=== PATIENT | female | born 1940 | race Caucasian/White ===

== ENCOUNTER 2018-05-04 14:57 | Emergency (ER) | payer OTHER ==
[~2018-05-04] VITALS: Ht 165.1 cm; Wt 70.0 kg
[2018-05-04] MEDS ORDERED: CEFEPIME 2GM/50 ML (PMX) 50 ML IVPB STA (15:05)
[2018-05-04] MEDS ORDERED: SODIUM CHLORIDE 0.9% 1L BAG IV* STA (15:05)
[2018-05-04 15:07] VITALS: Ht 165.1 cm; Wt 70.0 kg
[2018-05-04] MEDS ORDERED: VANCOMYCIN 1 GM (PMX) 250 ML IVPB ONE (15:30)
[2018-05-04] MEDS ORDERED: ACETAMINOPHEN 650 MG SUPP PR ONE ×2 (15:53→16:00)
[2018-05-04] MEDS ORDERED: SOD CHLORIDE 0.9% 100 ML ONE (16:51)
[2018-05-04] MEDS ORDERED: IOHEXOL 100 ML ONE (16:51)
[2018-05-04] MEDS ORDERED: LORAZEPAM 2 MG INJ IV ONE (17:00)
[2018-05-04] MEDS ORDERED: SOD CHLORIDE 0.9% 0 ML IV ONE (17:46)
[2018-05-04] MEDS ORDERED: HALOPERIDOL 5 MG INJ IV ONE (20:00)
--- NOTE | 2018-05-04 20:09 | ERD ---
ER Documentation Chief Complaint Chief Complaint BIB RA FOR EVAL OF ALOC. PT A&OX1. FEBRILE HPI This 77-year-old female, who presents for altered mental state in the setting of fever. The patient was brought in by ambulance, her and son were at the bedside, the majority of her history was obtained from them. According to the the patient had vague neuro symptoms, with questionable facial droop last night, which resolved, and questionable slurred speech, which has also resolved now. Her son feels that she is incoherent, however she does seem to be having signs of improvement, initially she was very slow to respond when he saw her last. She is a former ceramics teacher, so she has very high functioning at baseline. ROS All systems reviewed and are negative except as per history of present illness. Medications Home Meds No Active Prescriptions or Reported Meds Allergies Allergies: Coded Allergies: No Known Allergy (Unverified , 05/04/18) PMhx/Soc Hx Alcohol Use: No Hx Substance Use: No Hx Tobacco Use: No Smoking Status: Never smoker Physical Exam Vitals Vital Signs Date Temp Pulse Resp B/P (MAP) Pulse Ox O2 O2 Flow FiO2 Time Delivery Rate 05/04/18 100.8 103 22 134/47 94 Room Air 18:43 (76) 05/04/18 100.4 102 18 141/47 97 Room Air 17:39 (78) 05/04/18 96 20 126/47 96 Room Air 16:52 (73) 05/04/18 103 18 127/47 95 Room Air 16:47 (73) 05/04/18 Nasal 3 16:35 Cannula 05/04/18 102.3 16:16 05/04/18 102.3 105 20 150/103 99 15:07 (119) Physical Exam Const: Patient is awake, somewhat somnolent, but is able to follow commands Head: Atraumatic Eyes: Normal Conjunctiva ENT: Normal External Ears, Nose and Mouth. Neck: Full range of motion. No meningismus. Resp: Clear to auscultation bilaterally Cardio: Regular rate and rhythm, no murmurs Abd: Soft, non tender, non distended. Normal bowel sounds Skin: No petechiae or rashes Back: No midline or flank tenderness Ext: No cyanosis, or edema Neur: Neuro: M/S: Alert and oriented Face: EOMI, face and pharynx with normal sensation and function Motor: Normal strength throughout Sensation: Normal sensation throughout Speech: Normal Cerebel: Normal coordination Normal gait Normal finger to nose DTR: 2+ and symmetric upper/lower extremities Psych: Normal Mood and Affect Result Diagram: 05/04/18 1518 05/04/18 1518 Results 24 hrs Laboratory Tests Test 05/04/18 15:18 05/04/18 15:40 White Blood Count 15.0 10^3/ul Red Blood Count 3.91 10^6/ul Hemoglobin 6.8 g/dl Hematocrit 25.3 % Mean Corpuscular Volume 64.7 fl Mean Corpuscular Hemoglobin 17.4 pg Mean Corpuscular Hemoglobin Concent 26.9 g/dl Red Cell Distribution Width 16.8 % Platelet Count 345 10^3/UL Mean Platelet Volume 10.4 fl Immature Granulocytes % 0.800 % Neutrophils % % Segmented Neutrophils % (Manual) 77 % Band Neutrophils % (Manual) 18 % Lymphocytes % % Lymphocytes % (Manual) 2 % Monocytes % % Eosinophils % % Eosinophils % (Manual) 2 % Basophils % % Basophils % (Manual) 1 % Nucleated Red Blood Cells % 0.0 /100WBC Immature Granulocytes # 0.120 10^3/ul Neutrophils # 10^3/ul Neutrophils # (Manual) 12.0 10^3/ul Band Neutrophils # 2.7 10^3/ul Lymphocytes (Manual) 0.3 10^3/ul Lymphocytes # 10^3/ul Monocytes # 10^3/ul Eosinophils # 10^3/ul Basophils # 10^3/ul Basophils # (Manual) 0.1 10^3/ul Nucleated Red Blood Cells # 10^3/ul Pathologist Review (Hematology) YES Platelet Estimate NORMAL Polychromasia 1+ Poikilocytosis 2+ Anisocytosis 2+ Microcytosis 2+ Prothrombin Time 15.0 Sec Prothrombin Time Ratio 1.2 INR International Normalized Ratio 1.17 Activated Partial Thromboplast Time 40.7 Sec Sodium Level 133 mmol/L Potassium Level 3.5 mmol/L Chloride Level 96 mmol/L Carbon Dioxide Level 25 mmol/L Anion Gap 12 Blood Urea Nitrogen 16 mg/dl Creatinine 0.82 mg/dl Est Glomerular Filtrat Rate mL/min mL/min Glucose Level 144 mg/dl Lactic Acid Level 1.6 mmol/L Calcium Level 8.8 mg/dl Total Bilirubin 0.5 mg/dl Direct Bilirubin 0.00 mg/dl Indirect Bilirubin 0.5 mg/dl Aspartate Amino Transf (AST/SGOT) 34 IU/L Alanine Aminotransferase (ALT/SGPT) 24 IU/L Alkaline Phosphatase 80 IU/L Troponin I 0.889 ng/ml Total Protein 7.1 g/dl Albumin 3.9 g/dl Globulin 3.20 g/dl Albumin/Globulin Ratio 1.21 Lipase 39 U/L Urine Color YELLOW Urine Clarity SLIGHTLY CLOUDY Urine pH 5.0 Urine Specific [place] 1.019 Urine Ketones TRACE mg/dL Urine Nitrite NEGATIVE mg/dL Urine Bilirubin NEGATIVE mg/dL Urine Urobilinogen NEGATIVE mg/dL Urine Leukocyte Esterase TRACE Giselle/ul Urine Microscopic RBC 5 /HPF Urine Microscopic WBC 5 /HPF Urine Mucus FEW /HPF Urine Hemoglobin NEGATIVE mg/dL Urine Glucose NEGATIVE mg/dL Urine Total Protein 2+ mg/dl Current Medications Medications Dose Sig/Prudencio Start Time Status Last (Trade) Ordered Route PRN Stop Time Admin Dose Reason Admin Sodium 1,800 ml BOLUS OVER 2 05/04/18 DC 05/04/18 Chloride HOURS STAT 15:05 15:21 (NS) IV* 05/04/18 15:08 Cefepime HCl 50 ml @ ONCE STAT 05/04/18 DC 05/04/18 100 mls/hr IVPB 15:05 15:23 05/04/18 15:34 Vancomycin 250 ml @ ONCE ONCE 05/04/18 DC 05/04/18 HCl 125 mls/hr IVPB 15:30 16:03 05/04/18 17:29 650 mg ONCE ONCE 05/04/18 DC 05/04/18 Acetaminophen MN 16:00 16:16 (Tylenol 05/04/18 16:04 Supp) 650 mg STK-MED 05/04/18 DC Acetaminophen ONCE MN 15:53 (Tylenol 05/04/18 15:54 Supp) Lorazepam 0.5 mg ONCE ONCE 05/04/18 DC 05/04/18 (Ativan) IV 17:00 16:57 05/04/18 17:01 IV Flush 10 ml STK-MED 05/04/18 DC (NS 10 ml) ONCE .ROUTE 16:51 05/04/18 16:52 Sodium 100 ml @ ud STK-MED 05/04/18 DC Chloride ONCE .ROUTE 16:51 05/04/18 16:52 Iohexol 100 ml @ ud STK-MED 05/04/18 DC ONCE .ROUTE 16:51 05/04/18 16:52 Sodium 0 ml @ 0 Q0M ONCE 05/04/18 DC Chloride mls/hr IV 17:46 05/04/18 17:50 Haloperidol 5 mg ONCE ONCE 05/04/18 05/04/18 (Haldol) IV 20:00 19:44 05/04/18 20:01 Procedures/MDM 77-year-old female presents for evaluation of altered mental state in setting of fever. Her symptoms resolved over the course of her ED evaluation, she had no focal neurologic symptoms, I did consider a stroke, she had CT and CTA which were both negative, given that her symptoms from a focal neurologic standpoint had more or less resolved in the ED, and she showed clinical signs of improvement in terms of delirium, I do not feel that she was a TPA candidate. She had no meningeal signs on exam, my overall suspicion that she most likely has bacteremia, from an unknown source. She was treated with broad-spectrum antibiotics including vancomycin and cefepime, her hemoglobin was noted to be 6.8. Regarding her anemia, she has been evaluated at [facility], and the etiology of this is unclear, her states that she does have some weakness when she has been anemic in the past. Additionally showed a troponin which was 0.880, I suspect this most likely demand ischemia, her EKG did not show any acute ischemia. 1 unit of packed red blood cells were ordered, the patient will be transferred to [facility], with the critical care team, Dr. Bro was the accepting physician. Sepsis Documentation: Patient's infectious symptoms have not stabilized and the patient is at risk of rapid decompensation. The patient will be admitted for careful hydration, antibiotic therapy, and infectious source control. SEVERE SEPSIS CRITERIA: Infectious source: Unknown End organ damage indicated by: No evidence of endorgan damage SEPSIS MANAGEMENT Time of recognition of sepsis: [Upon arrival]. Time of recognition of severe sepsis: [No severe sepsis at this time]. Time of recognition of septic shock: [No septic shock at this time]. 3 HOUR BUNDLE Blood cultures x 2 before broad-spectrum antibiotics: [Yes] 30 ml/kg NS bolus not done, given evidence of CHF Initial lactate 1.6 Repeat lactate pending SEPTIC SHOCK ASSESSMENT: [No] lactic acid > 4.0 [No] Persistent hypotension (SBP < 90 or 40 mmHg drop, MAP < 65) despite 30 mL/kg IV fluid bolus CRITICAL CARE Critical care time [35] minutes Emergent fluid management while maintaining close respiratory support. Provision of immediate and broad-spectrum antibiotic therapy. Simultaneous assessment for possible sources in order to direct targeted therapy. Consideration for invasive and chemical support to prevent cardiopulmonary collapse. Critical care time is independent of procedures performed. Departure Diagnosis: Primary Impression: Altered level of consciousness Additional Impressions: Fever Fever type: unspecified Qualified Codes: R50.9 - Fever, unspecified Sepsis Sepsis type: sepsis due to unspecified organism Qualified Codes: A41.9 - Sepsis, unspecified organism Non-ST elevation (NSTEMI) myocardial infarction Anemia Condition: Stable WAQAS PATTEN MD May 04, 2018 20:07
[2018-05-04 20:45] VITALS: BP 139/48; PULSE 99; RESP 23
== END 2018-05-04 21:11 | disposition home or self-care (01) ==
LOC: E/R 14:57
DX: R41.82 Altered mental status, unspecified (principal); A41.9 Sepsis, unspecified organism; I21.4 Non-ST elevation (NSTEMI) myocardial infarction; D64.9 Anemia, unspecified
CPT/HCPCS: 36415; 36430; 70450; 70496; 70498; 71045; 80053; 81001; 83605; 83690; 84484; 85025; 85610; 85730; 86850; 86900; 86901; 86920; 87040; 87086; 87400; 93005; 96374; 96375; 99291; J0692; J1630; J2060; J3370; J7030; J7040; P9016; Q9967